=== PATIENT | male | born 1990 | race Caucasian/White ===

== ENCOUNTER 2023-06-26 08:20 | Outpatient (CLI) | payer OTHER, SELFPAY ==
--- NOTE | 2023-07-15 14:51 | WPDSLEEPSTUD ---
Sleep Study Date of Study: 06/26/23 Ordering Provider: Guanakito Mercado APRN Interpreting Physician: Megan Browning DO Sleep Study Type: Polysomnogram Height: 1.78 m Weight: 68.039 kg Body Mass Index: 21.5 Neck Circumference (inches): 14 [place]: 12 Reason for Sleep Study Loud snoring, hypersomnia Sleep History The patient is a 33-year-old male with anxiety, depression, hypogonadism and Kenny's thyroiditis that had a sleep study ordered by the pulmonary group for evaluation sleep apnea. The patient occasionally awakens from sleep short of breath. He occasionally awakens at night with heartburn, belching or cough. He frequently snores loudly enough others complain. He occasionally has trouble sleeping when he has a cold. He frequently wakes up gasping for air throughout the night. He frequently has breathing problems at night observed by himself or others. He occasionally sweats excessively at night. He frequently has heart palpitations or irregular heartbeats during the night. He frequently falls asleep during the day. He occasionally falls asleep while driving. He denies sleep paralysis and cataplexy. He frequently has trouble at school or work due to sleepiness. He occasionally experiences vivid dreamlike scenes upon awakening or falling asleep. He denies feeling afraid of going to sleep. He occasionally has nightmares. He rarely remembers his dreams. He frequently has thoughts racing through his mind. He occasionally feels sad or depressed and frequently has anxiety. He rarely has muscular tension. He constantly notices parts of his body jerk and constantly kicks during the night. He rarely has crawling and aching feelings in his legs but occasionally has leg pain during the night. He occasionally grinds his teeth during sleep but rarely awakens with morning jaw pain. He is rarely bothered by pain during the day but occasionally awakened by pain during the night. He frequently wakes up feeling stiff in the morning. He frequently wakes up with sore or achy muscles. He frequently wakes up with pain in the neck, spine or other joints. He goes to bed between 10:30-11 p.m. on weekdays. He does not have a set bedtime on the weekends. It can take him 30-60 minutes to fall asleep. He wakes up 2-3 times throughout the night to check the timer make sure his dream was not real. It takes him 15-20 minutes to fall back asleep. He wakes up at 4:30 a.m. on weekdays and does not have a set wake up time on the weekends. He typically gets 6-7 hours of sleep per night. He does not stay in bed after waking up in morning. He currently lives with his and child. He denies consuming any caffeinated beverages within 2 hours of bedtime. He denies engaging in physical exercise before bedtime. He will watch television before falling asleep. He will take naps in the afternoon or the evening and he will feel worse when he wakes up He denies consuming caffeinated beverages throughout the day. He consumes 2 alcoholic beverages per week. He denies tobacco and recreational drug use. [facility] Past Medical History Medical History Fatigue Hypogonadism Hypothyroidism Surgical History Surgical History H/O arthroscopic knee surgery Family History Family History Mother Hypertension Social History Social History Smoking status: Never smoker Alcohol intake: current Alcohol use details: occasionally Substance use: never Medications Home Medications Medication Instructions Recorded Confirmed Type levothyroxine 25 mcg capsule 25 mcg PO DAILY 04/25/23 History (Tirosint) [id number] 1 cap PO QID 04/25/23 History 36,000-114,000-180,000 unit capsule,delay rel ([facility]
[2023-07-15 15:06] VITALS: BMI 21.5
== END 2023-06-27 07:19 | disposition home or self-care (01) ==
LOC: ANHCSM 08:21
PROVIDERS: Visit Provider Nurse Practitioner Family
DX: G47.33 Obstructive sleep apnea (adult) (pediatric) (principal); G47.10 Hypersomnia, unspecified; R53.82 Chronic fatigue, unspecified
CPT/HCPCS: 95810